=== PATIENT | male | born 1950 | race Caucasian/White ===

== ENCOUNTER 2019-04-24 12:29 | Inpatient (IN) | payer OTHER ==
[2019-04-24 13:46] LABS: Albumin 3.6 g/dL (3.2-5.2); Albumin/Globulin Ratio 1.1 (1-3); BUN/Creatinine Ratio 24.5 (8-20); Calcium 9.6 mg/dL (8.6-10.3); EGFR African American 23.2 (>60); EGFR Non-African American 19.2 (>60); Globulin 3.4 g/dL (2-4); Potassium 3.6 mmol/L (3.5-5.0); Total Bilirubin 0.7 mg/dL (0.2-1.0)
[2019-04-24 14:07] LABS: ABS Eosinophils 0.1 10^3/ul (0-0.6); ABS Monocytes 0.7 10^3/ul (0-0.8); ABS Neutrophils 5.3 10^3/ul (1.5-7.7); Eosinophil % 1.8 %; Hematocrit 34 % (42-52); Hemoglobin 11.1 g/dL (14.0-18.0); Lymphocyte % 13.5 %; Mean Corpuscular HGB Conc 32 g/dL (31-36); Mean Corpuscular Hemoglobin 34 pg (27-31); Mean Corpuscular Volume 106 fL (80-94); Mean Platelet Volume 8.2 fL (7.4-10.4); Nucleated Red Blood Cells % 0.1; Platelet Count 144 10^3/uL (150-450); Red Blood Count 3.21 10^6 /uL (4.18-5.48); Red Cell Distribution Width 16 % (10-15); White Blood Count 7.2 10^3/uL (3.5-10.8)
[2019-04-24 14:24] LABS: C Reactive Protein 102.32 mg/L (<8.01)
[2019-04-24] MEDS ORDERED: NS 0.9% 1000 ML** 1,000 ML IV ONE (15:54)
[2019-04-24] MEDS ORDERED: Azithromycin 500 mg/250 ml NS 500 MG/250 ML BAG IVPB ONE (15:55)
[2019-04-24] MEDS ORDERED: cefTRIAXone(*) 1 GM in NS 0.9% 50 ML* 50 ML IVPB ONE (15:55)
--- NOTE | 2019-04-24 15:57 | ED ---
Respiratory - HPI Summary HPI Summary: The patient is a 68 y/o M presenting to [facility] with a chief complaint of respiratory symptoms for the last 4-5 days. He reports that he has been experiencing a productive cough, shortness of breath, weakness, and decreased appetite. He states he has been drinking fluids. He denies any chest pain or edema. He is not in any pain. There are no aggravating or alleviating factors. He states that he formerly smoked but only stopped two days ago. PMHx: atrial fibrillation, CHF, HLD, HTN, two cardiac stents, COPD, acute renal failure, gout. Former smoker, no EtOH, no substance use. Medications reviewed. Allergies noted. - History of Current Complaint Chief Complaint: EDUpperRespComplaint Stated Complaint: SOB/SICK PER PT Time Seen by Provider: 04/24/19 15:50 Hx Obtained From: Patient Onset/Duration: Gradual Onset, Lasting Days - 4-5, Still Present Initial Severity: Mild Current Severity: Moderate Pain Intensity: 0 Character: Cough (Productive) Sputum Amount: Small Aggravating Factor(s): Nothing Alleviating Factor(s): Nothing Associated Signs and Symptoms: SOB - Allergy/Home Medications Allergies/Adverse Reactions: Allergies Allergy/AdvReac Type Severity Reaction Status Date / Time No Known Allergies Allergy Verified 04/24/19 12:35 PMH/Surg Hx/FS Hx/Imm Hx Endocrine/Hematology History: Denies: Hx Diabetes Cardiovascular History: Reports: Hx Atrial Fibrillation, Hx Congestive Heart Failure, Hx Hypercholesterolemia, Hx Hypertension Respiratory History: Reports: Hx Chronic Obstructive Pulmonary Disease (COPD), Other Respiratory Problems/Disorders - copd History: Reports: Hx Acute Renal Failure, Hx Dialysis, Hx Renal Disease - R KIDNEY ONLY, Other Problems/Disorders - no Left kidney Musculoskeletal History: Reports: Hx Gout Sensory History: Reports: Hx Contacts or Glasses Opthamlomology History: Reports: Hx Contacts or Glasses - Surgical History Surgical History: Yes Surgery Procedure, Year, and Place: 2 cardiac stents Infectious Disease History: No Infectious Disease History: Reports: Hx Shingles - IMMUNIZATION 2 MONTHS AGO Denies: Traveled Outside the [place] in Last 30 Days - Family History Known Family History: Positive: Cardiac Disease, Hypertension - Social History Alcohol Use: None Hx Substance Use: No Substance Use Type: Reports: None Hx Tobacco Use: Yes Smoking Status (MU): Former Smoker - states last used two days ago Review of Systems Negative: Fever Negative: Chest Pain Positive: Shortness Of Breath, Cough - productive Positive: Other - decreased appetite Negative: Edema Positive: Weakness All Other Systems Reviewed And Are Negative: Yes Physical Exam - Summary Physical Exam Summary: VITAL SIGNS: Reviewed. GENERAL: Patient is a well-developed and nourished male who is lying comfortable in the stretcher. Patient is not in any acute respiratory distress. Appears older than his age. HEAD AND FACE: No signs of trauma. No ecchymosis, hematomas or skull depressions. No sinus tenderness. EYES: PERRLA, EOMI x 2, No injected conjunctiva, no nystagmus. EARS: Hearing grossly intact. Ear canals and tympanic membranes are within normal limits. MOUTH: Dry oral mucosa. Oropharynx otherwise within normal limits. NECK: Supple, trachea is midline, no adenopathy, no JVD, no carotid bruit, no c- spine tenderness, neck with full ROM. CHEST: Symmetric, no tenderness at palpation. LUNGS: Crackles. No wheezing. CVS: Regular rate and rhythm, S1 and S2 present, no murmurs or gallops appreciated. ABDOMEN: Soft, non-tender. No signs of distention. No rebound, no guarding, and no masses palpated. Bowel sounds are normal. EXTREMITIES: FROM in all major joints, no edema, no cyanosis or clubbing. NEURO: Alert and oriented x 3. No acute neurological deficits. Speech is normal and follows commands. SKIN: Increased turgor of the skin, dry. Warm. Triage Information Reviewed: Yes Vital Signs On Initial Exam: Initial Vitals Temp Pulse Resp BP Pulse Ox 97.9 F 62 16 115/85 96 04/24/19 12:31 04/24/19 12:31 04/24/19 12:31 04/24/19 12:31 04/24/19 12:31 Vital Signs Reviewed: Yes Procedures - Sedation Patient Received Moderate/Deep Sedation with Procedure: No Diagnostics - Vital Signs Vital Signs Temp Pulse Resp BP Pulse Ox 04/24/19 14:40 97.8 F 60 18 102/50 96 04/24/19 12:31 97.9 F 62 16 115/85 96 - Laboratory Lab Results: Lab Results 04/24/19 04/24/19 Range/Units 13:07 13:07 WBC 7.2 (3.5-10.8) 10^3/uL RBC 3.21 L (4.18-5.48) 10^6 /uL Hgb 11.1 L (14.0-18.0) g/dL Hct 34 L (42-52) % MCV 106 H (80-94) fL MCH 34 H (27-31) pg MCHC 32 (31-36) g/dL RDW 16 H (10-15) % Plt Count 144 L (150-450) 10^3/uL MPV 8.2 (7.4-10.4) fL Neut % (Auto) 74.1 % Lymph % (Auto) 13.5 % [place] % (Auto) 10.3 % Eos % (Auto) 1.8 % Baso % (Auto) 0.3 % Absolute Neuts (auto) 5.3 (1.5-7.7) 10^3/ul Absolute Lymphs (auto) 1.0 (1.0-4.8) 10^3/ul Absolute Monos (auto) 0.7 (0-0.8) 10^3/ul Absolute Eos (auto) 0.1 (0-0.6) 10^3/ul Absolute Basos (auto) 0.0 (0-0.2) 10^3/ul Absolute Nucleated RBC 0.0 10^3/ul Nucleated RBC % 0.1 Sodium 140 (135-145) mmol/L Potassium 3.6 (3.5-5.0) mmol/L Chloride 100 L (101-111) mmol/L Carbon Dioxide 31 (22-32) mmol/L Anion Gap 9 (2-11) mmol/L BUN 79 H (6-24) mg/dL Creatinine 3.23 H (0.67-1.17) mg/dL Est GFR ( Amer) 23.2 (>60) Est GFR (Non-Af Amer) 19.2 (>60) BUN/Creatinine Ratio 24.5 H (8-20) Glucose 117 H (70-100) mg/dL Calcium 9.6 (8.6-10.3) mg/dL Total Bilirubin 0.70 (0.2-1.0) mg/dL AST 16 (13-39) U/L ALT 11 (7-52) U/L Alkaline Phosphatase 198 H (34-104) U/L C-Reactive Protein 102.32 H (<8.01) mg/L Total Protein 7.0 (6.4-8.9) g/dL Albumin 3.6 (3.2-5.2) g/dL Globulin 3.4 (2-4) g/dL Albumin/Globulin Ratio 1.1 (1-3) Result Diagrams: 04/26/19 05:31 04/26/19 05:31 Lab Statement: Any lab studies that have been ordered have been reviewed, and results considered in the medical decision making process. - Radiology Chest X-Ray Radiology Interpretation Completed By: Radiologist Summary of Radiographic Findings: Impression: 1. Interval development of left lower lung consolidation. Recommend follow-up until resolution to exclude underlying pulmonary parenchymal pathology. 2. COPD. ED physician has reviewed this report. Disposition - Course Assessment/Plan: The patient is a 68 y/o M presenting to [facility] with a chief complaint of respiratory symptoms for the last 4-5 days. He reports that he has been experiencing a productive cough, shortness of breath, weakness, and decreased appetite. He states he has been drinking fluids. He denies any chest pain or edema. He is not in any pain. There are no aggravating or alleviating factors. He states that he formerly smoked but only stopped two days ago. PMHx: atrial fibrillation, CHF, HLD, HTN, two cardiac stents, COPD, acute renal failure, gout. Former smoker, no EtOH, no substance use. Medications reviewed. Allergies noted. In the ED course, the patient was administered Azithromycin. Blood work without an acute abnormalities except for slight anemia, platelet count of 144, INR of 5.10, chloride of 100, BUN of 79, creatinine of 3.23, glucose of 117, alkaline phosphatase of 198, and CRP of 102.32. Influenza A and B negative. Chest X-ray Impression: 1. Interval development of left lower lung consolidation. Recommend follow-up until resolution to exclude underlying pulmonary parenchymal pathology. 2. COPD. I discussed the patients case with Dr. Escobedo from the hospitalist services, and he accepts the patient for admission. Patient understands and agrees with this plan. - Diagnoses Provider Diagnoses: Pneumonia - Physician Notifications Discussed Care Of Patient With: Jt Escobedo - hospitalist Time Discussed With Above Provider: 15:58 Instructed by Provider To: Other - I discussed the patient's case with Dr. Escobedo who acceptes the patient for admission. Discharge ED - Sign-Out/Discharge Documenting (check all that apply): Patient Departure - Patient is accepted for admission by Dr. Escobedo. - Discharge Plan Condition: Improved Disposition: ADMITTED TO [facility] - Billing Disposition and Condition Condition: IMPROVED Disposition: Admitted to [facility] - Attestation Statements Document Initiated by Melissa: Yes Documenting Scribe: Carol Dill Provider For Whom Melissa is Documenting (Include Credential): Dr. Mike Pascual MD Scribe Attestation: Craol Collazo scribed for Dr. Mike Pascual MD on 05/01/19 at 0751. Scribe Documentation Reviewed: Yes Provider Attestation: The documentation as recorded by the Carol morales accurately reflects the service I personally performed and the decisions made by me, Dr. Mike Pascual MD Status of Scribe Document: Viewed
[2019-04-24] MEDS ORDERED: Albuterol/Ipratropium NEB.SOL* Albuterol 2.5 MG/Ipratropium 0.5 MG 3 ML INH PRN (17:12)
[2019-04-24] MEDS ORDERED: Ondansetron INJ* 2 MG/ML VIAL IV PRN (17:16)
[2019-04-24] MEDS ORDERED: Acetaminophen TAB* 325 MG PO PRN (17:16)
[2019-04-24 18:31] LABS: INR 5.1 (0.82-1.09)
[2019-04-24 18:38] LABS: Influenza A Molecular NEGATIVE (Negative); Influenza B Molecular NEGATIVE (Negative)
--- NOTE | 2019-04-24 20:51 | HP ---
C: Dr. Carlson * ADMISSION HISTORY AND PHYSICAL: DATE OF ADMISSION: 04/24/19 PRIMARY CARE PROVIDER: Dr. Carlson at [facility] HEALTHCARE PROXY: His . CODE STATUS: Full. SOURCE OF INFORMATION: History obtained from interview with the patient and his . RELIABILITY: [id number]. CHIEF COMPLAINT: Cough and weakness. HISTORY OF PRESENT ILLNESS: This is a 68-year-old man with past medical history of CAD, paroxysmal atrial fibrillation, on Coumadin as well as COPD with long history of smoking, who approximately 1 week prior to presentation woke up and started feeling shortness of breath that was worse when lying flat, was not associated with lower extremity edema, but was associated with cough and dry throat as well as a thick phlegm that was described as off white, change from his baseline, but no fevers, chills or sweats. As a baseline, he was able to walk approximately half a mile, but now decreased over the last week , being short of breath walking to the bathroom. Described the change management specialist the last week as his cough being better and worse, but was associated with decreased p.o. intake as well as increased fatigue and sleepiness, sleeping more in his recliner. Today, he got a call from the [facility], who monitored his weight remotely, indicated that he had lost 4 pounds in the last 2 days. He was advised to contact his PCP and when he did and in discussion with him advised him to proceed to the emergency room, where he was found with new acute kidney injury as well as suspicion for pneumonia. The patient was seen by this author. The patient had cough as well as shortness of breath. No chest pain, nausea, vomiting, lightheadedness or loss of consciousness. The patient denies any changes in home medications or sick contacts. He remained home for the holidays. PAST MEDICAL HISTORY: Reviewed from the chart. The patient is a poor historian. Records were requested from his PCP. CAD with multiple PCIs; gout; paroxysmal atrial fibrillation, on Coumadin; left nephrectomy; cholecystectomy; FRANCIS, on CPAP; lung cancer, status post removal. No chemotherapy. Then, second lung cancer recently, status post RT, last therapy in March; COPD; heart failure, unknown type. MEDICATIONS: The patient does not know his home medications. All the following are unconfirmed. He receives medications through the [place], not able to call or confirm at this time. I have requested medication list from PCP. 1. Benadryl 50 mg at bedtime. 2. Coumadin 2 mg and Coumadin 1 mg, unclear of alternating days with 3 mg daily. 3. Simvastatin 40 mg at bedtime. 4. Potassium chloride 20 mEq 3 times daily. 5. Nitroglycerin sublingual. 6. Metolazone 5 mg daily. 7. Lisinopril 5 mg daily. 8. [place] 5/325 of 2 tabs 4 times daily as needed for pain. 9. Lasix 40 mg twice daily. 10. Nasalide 2 sprays both nares twice daily. 11. Ferrous sulfate 325 mg twice daily. 12. Cholecalciferol 4000 units daily. 13. Carvedilol 25 mg twice daily. 14. Symbicort 100/4.5 two puffs twice daily. 15. Aspirin 81 mg daily. 16. Allopurinol 200 mg daily. 17. Albuterol inhaler 2 puffs 4 times a day as needed. ALLERGIES: No known drug allergies. FAMILY HISTORY: Father had OR at age 55. Mother with lung cancer. SOCIAL HISTORY: One pack per day of tobacco for last 50 years, still active. No alcohol. Retired. REVIEW OF SYSTEMS: As per HPI, otherwise all other systems negative. PHYSICAL EXAMINATION GENERAL: Elderly man, looks older than his stated age, sitting up in bed, coughing, in no apparent distress, talking full sentences. VITAL SIGNS: When seen by this author 142/59, heart rate is 70, respiratory rate is 20, T-max in the emergency room is 97.9. HEENT: Oropharynx has slight erythema. Posterior pharynx has moist mucous membranes. Sclerae anicteric. NECK: He has non-elevated JVD, difficult to appreciate because of his garcía. No cervical or supraclavicular lymphadenopathy. LUNGS: His lungs have diffuse rhonchi bilaterally from bases approximately one half up bilaterally. HEART: He has irregularly irregular heart rate, difficult to appreciate murmurs. ABDOMEN: Soft, nontender, nondistended. EXTREMITIES: Warm and well perfused with 1+ lower extremity edema bilaterally. NEUROLOGIC: He is alert and oriented x3. His cranial nerves II through XII are intact. DIAGNOSTIC STUDIES/LAB DATA: Labs reviewed: Notable for white blood cell count of 7.2, hemoglobin 11.1, platelets 144. BUN of 79, creatinine 3.23. CRP is 102. Data reviewed: Chest x-ray, impression: Interval development of left lower lung consolidation as well as COPD. ASSESSMENT AND PLAN: This is a 68-year-old man with past medical history as outlined above including atrial fibrillation, coronary artery disease, chronic obstructive pulmonary disease, obstructive sleep apnea, presenting to the hospital with increased cough and weakness, found with acute kidney injury. 1. Pneumonia. Suspect based on cough, deconditioning, and chest x-ray findings. Received ceftriaxone, azithromycin in the emergency room. We will continue ceftriaxone and doxycycline, given his Coumadin to decrease the interaction between azithromycin and Coumadin. Check Streptococcus pneumoniae, Legionella urine antigen. Check influenza. 2. Atrial fibrillation. Continue Coumadin. His medication reconciliation does need to be completed as indicated above. PCP records were checked, were requested. Dosing per pharmacy. INR check tomorrow. 3. Obstructive sleep apnea. Continue CPAP. 4. Lung cancer. Receiving Radiation Therapy, last therapy on 04/17/19. No chemotherapy. 5. Chronic obstructive pulmonary disease. Continue nebulizers as well as inhaled steroids. Holding additional p.o. or IV steroids at this time. 6. Acute kidney injury. Suspect prerenal in the setting of Lasix as well as decreased appetite in the setting of aforementioned infection/pneumonia. Receive 1 L of normal saline in the emergency room. Hold additional check BMP tomorrow. 7. Congestive heart failure, unknown type. Holding Lasix in the setting of acute kidney injury. 8. Hypertension. Holding lisinopril. 9. DVT prophylaxis, on Coumadin. [id number]/[facility] #: [id number] [facility]
[2019-04-24] MEDS: Atorvastatin* 20 MG TAB PO SCH (20:55)
[2019-04-24] MEDS: Carvedilol TAB* 25 MG PO SCH (20:55)
[2019-04-24] MEDS: DOXYcycline CAP(*) 100 MG PO SCH (20:55)
[2019-04-24] MEDS: Mometasone/Formoter 200/5 MDI INH SCH (22:39)
[2019-04-25 06:38] LABS: ABS Basophils 0.1 10^3/ul (0-0.2); ABS Eosinophils 0.1 10^3/ul (0-0.6); ABS Monocytes 0.6 10^3/ul (0-0.8); ABS Neutrophils 4.4 10^3/ul (1.5-7.7); Eosinophil % 1.7 %; Hematocrit 32 % (42-52); Hemoglobin 10.6 g/dL (14.0-18.0); Lymphocyte % 16.2 %; Mean Corpuscular HGB Conc 34 g/dL (31-36); Mean Corpuscular Hemoglobin 35 pg (27-31); Mean Corpuscular Volume 105 fL (80-94); Mean Platelet Volume 8.3 fL (7.4-10.4); Nucleated Red Blood Cells % 0.2; Platelet Count 141 10^3/uL (150-450); Red Blood Count 3.01 10^6 /uL (4.18-5.48); Red Cell Distribution Width 16 % (10-15); White Blood Count 6.2 10^3/uL (3.5-10.8)
[2019-04-25 06:46] LABS: INR 4.39 (0.82-1.09)
[2019-04-25 07:05] LABS: BUN/Creatinine Ratio 24.1 (8-20); Calcium 9.1 mg/dL (8.6-10.3); EGFR African American 23.2 (>60); EGFR Non-African American 19.1 (>60)
[2019-04-25] MEDS: Allopurinol TAB* 100 MG PO SCH (08:57)
[2019-04-25] MEDS: Aspirin EC TAB* 81 MG TAB.EC PO SCH (08:57)
[2019-04-25] MEDS: Carvedilol TAB* 25 MG PO SCH ×2 (08:57→21:05)
[2019-04-25] MEDS: DOXYcycline CAP(*) 100 MG PO SCH ×2 (08:58→21:05)
[2019-04-25] MEDS ORDERED: Lisinopril TAB* 10 MG PO SCH (09:00)
[2019-04-25] MEDS ORDERED: Furosemide TAB* 40 MG PO SCH (09:00)
[2019-04-25] MEDS: Mometasone/Formoter 200/5 MDI INH SCH ×2 (09:37→20:21)
[2019-04-25 11:05] LABS: Magnesium 1.6 mg/dL (1.9-2.7)
[2019-04-25] MEDS: Potassium Chlor TAB* 10 MEQ TAB.ER PO SCH ×2 (12:00→21:05)
[2019-04-25] MEDS ORDERED: WARFARIN - No Order Today* 1 NOTE MISC FOLLOW UP ONE (15:00)
--- NOTE | 2019-04-25 16:59 | PN ---
Subjective Date of Service: 04/25/19 Interval History: Patient continues to cough severely when he takes a deep breath. Producing copius coronel sputum. Finished radiation to RT lung 04/[address] Nicolas. Has some anterior chest pain w/ cough. Family History: Unchanged from Admission Social History: Unchanged from Admission Past Medical History: Unchanged from Admission Objective Active Medications: Acetaminophen (Tylenol Tab*) 650 mg PO Q4H PRN PRN Reason: PAIN-MILD/TEMP >/= 100.4 Hydrocodone Bitart/Acetaminophen ([place] 5-325 Tab*) 2 tab PO QID PRN PRN Reason: PAIN - MODERATE Albuterol/Ipratropium (Duoneb (Albuterol 2.5 Mg/Ipratropium 0.5 Mg)) 1 neb INH Q4H PRN PRN Reason: SOB/WHEEZING Last Admin: 04/24/19 22:55 Dose: 1 neb Allopurinol (Zyloprim Tab*) 200 mg PO DAILY [facility] Last Admin: 04/25/19 08:57 Dose: 200 mg Aspirin (Aspirin Ec Tab*) 81 mg PO DAILY [facility] Last Admin: 04/25/19 08:57 Dose: 81 mg Atorvastatin Calcium (Lipitor*) 20 mg PO BEDTIME [facility] Last Admin: 04/24/19 20:55 Dose: 20 mg Carvedilol (Coreg Tab*) 25 mg PO BID [facility] Last Admin: 04/25/19 08:57 Dose: 25 mg Doxycycline Hyclate (Vibramycin Cap(*)) 100 mg PO BID [facility] Last Admin: 04/25/19 08:58 Dose: 100 mg Ceftriaxone Sodium 1 gm/ (Sodium Chloride) 50 mls @ 100 mls/hr IVPB Q24H [facility] Mometasone Furoate/Formoterol Fumar (Dulera 200/5 Mdi*) 2 puff INH BID [facility] Last Admin: 04/25/19 09:37 Dose: 2 puff Ondansetron HCl (Zofran Inj*) 4 mg IV Q4H PRN PRN Reason: NAUSEA/VOMITING Pharmacy Profile Note (Coumadin Per Pharmacy*) 1 note FOLLOW UP .PER PHARMACY PROTOC [facility]; Protocol Potassium Chloride (Klor Con Er Tab*) 10 meq PO BID [facility] Last Admin: 04/25/19 12:00 Dose: 10 meq Selected Entries 04/25/19 07:15 Temperature 36.4 C Pulse Rate 66 Respiratory 19 Rate Blood Pressure 119/48 (mmHg) O2 Sat by Pulse 99 Oximetry Oxygen Devices in Use Now: None Appearance: elderly, no distress Ears/Nose/Mouth/Throat: NL Teeth, Lips, Gums Neck: No Thyroid Enlargement, Masses Respiratory: - - ronchi LLL, diminished throughout Cardiovascular: No Edema, - - irregular, no murmur Abdominal: NL Sounds; No Tenderness; No Distention, No Hepatosplenomegaly Lymphatic: No Cervical Adenopathy Neurological: Alert and Oriented x 3 Lines/Tubes/Other Access: Clean, Dry and Intact Peripheral IV Nutrition: Taking PO's Result Diagrams: 04/25/19 06:19 04/25/19 06:19 Additional Lab and Data: Laboratory Tests 04/24/19 04/25/19 04/25/19 17:39 06:19 06:19 INR (Anticoag Therapy) 5.10 H* 4.39 H Magnesium 1.6 L Microbiology and Other Data: Microbiology 04/25/19 04:05 Legionella Urinary Antigen - Final Urine Negative Legionella Antigen Streptococcus pneumoniae Ag Screen - Final Negative S. pneumo Antigen Assess/Plan/Problems-Billing Assessment: 68 year old man with COPD and recently treated RT sided lung cancer, here with LLL pneumonia - Patient Problems (1) Pneumonia of left lower lobe due to infectious organism Current Visit: Yes Status: Acute Priority: High Code(s): J18.9 - PNEUMONIA , UNSPECIFIED ORGANISM SNOMED Code(s): 470450852 Comment: -Does not appear to have COPD exacerbation, no steroids currently needed -Continue ceftriaxone and doxycycline -Saturating well on room air (2) COPD (chronic obstructive pulmonary disease) Current Visit: Yes Status: Acute Priority: Medium Code(s): J44.9 - CHRONIC OBSTRUCTIVE PULMONARY DISEASE, UNSPECIFIED SNOMED Code(s): 59653960 Comment: -Continue nebulizers (3) Lung cancer Current Visit: Yes Status: Acute Priority: Medium Code(s): C34.90 - MALIGNANT NEOPLASM OF UNSP PART OF UNSP BRONCHUS OR LUNG SNOMED Code(s): 500608127 Comment: -Patient is immunosuppressed by recent radiation therapy -Will need outpatient follow-up (4) Atrial fibrillation with controlled ventricular rate Current Visit: Yes Status: Acute Priority: Medium Code(s): I48.91 - UNSPECIFIED ATRIAL FIBRILLATION SNOMED Code(s): 80945045 Comment: -Rate control adequate -INR elevated, warfarin on hold, would restart when INR <3 (5) Hypokalemia Current Visit: Yes Status: Acute Priority: Medium Code(s): E87.6 - HYPOKALEMIA SNOMED Code(s): 01367442 Comment: -Repleting KCl and Mg, rechecking in AM. (6) DVT prophylaxis Current Visit: Yes Status: Acute Priority: Low Code(s): Z29.9 - ENCOUNTER FOR PROPHYLACTIC MEASURES, UNSPECIFIED SNOMED Code(s): 637605900 Comment: -on warfarin Status and Disposition: inpatient
[2019-04-25] MEDS: Magnesium Oxide TAB* 400 MG PO SCH (17:22)
[2019-04-25] MEDS: cefTRIAXone(*) 1 GM in NS 0.9% 50 ML* 50 ML IVPB SCH (17:22)
[2019-04-25] MEDS: Atorvastatin* 20 MG TAB PO SCH (21:05)
[2019-04-26] MEDS: HYDROcodone/ACETAMIN 5-325 MG* 1 TAB PO PRN ×4 (01:45→20:49)
[2019-04-26] MEDS ORDERED: Benzonatate CAP* 100 MG PO PRN (03:51)
[2019-04-26] MEDS ORDERED: Morphine INJ* 2 MG/ML 1 ML SYRINGE (TWO MG - NEW SYRINGE VERSION) IV ONE (04:00)
[2019-04-26 06:05] LABS: Mean Platelet Volume 7.6 fL (7.4-10.4); Platelet Count 137 10^3/uL (150-450)
[2019-04-26 06:13] LABS: BUN/Creatinine Ratio 27.1 (8-20); Calcium 8.9 mg/dL (8.6-10.3); EGFR African American 26.1 (>60); EGFR Non-African American 21.6 (>60); INR 2.63 (0.82-1.09); Potassium 2.9 mmol/L (3.5-5.0)
[2019-04-26] MEDS ORDERED: Potassium Chlor TAB* 20 MEQ TAB.ER PO ONE (07:08)
[2019-04-26] MEDS: Mometasone/Formoter 200/5 MDI INH SCH ×2 (07:19→20:31)
[2019-04-26] MEDS: Allopurinol TAB* 100 MG PO SCH (07:27)
[2019-04-26] MEDS: Carvedilol TAB* 25 MG PO SCH ×2 (07:28→20:49)
[2019-04-26] MEDS: Potassium Chlor TAB* 10 MEQ TAB.ER PO SCH ×2 (07:28→20:49)
[2019-04-26] MEDS: Aspirin EC TAB* 81 MG TAB.EC PO SCH (07:29)
[2019-04-26] MEDS: Magnesium Oxide TAB* 400 MG PO SCH ×2 (07:29→17:04)
[2019-04-26] MEDS: DOXYcycline CAP(*) 100 MG PO SCH ×2 (07:29→20:49)
--- NOTE | 2019-04-26 14:37 | PN ---
Subjective Date of Service: 04/26/19 Interval History: Cough with white sputum, normal amount for him. Some interscapular pain that he attributes to coughing. No bowel c/o. Appetite good. No new c/o. Family History: Unchanged from Admission Social History: Unchanged from Admission Past Medical History: Unchanged from Admission Objective Active Medications: Acetaminophen (Tylenol Tab*) 650 mg PO Q4H PRN PRN Reason: PAIN-MILD/TEMP >/= 100.4 Hydrocodone Bitart/Acetaminophen ([place] 5-325 Tab*) 2 tab PO QID PRN PRN Reason: PAIN - MODERATE Last Admin: 04/26/19 13:12 Dose: 2 tab Albuterol/Ipratropium (Duoneb (Albuterol 2.5 Mg/Ipratropium 0.5 Mg)) 1 neb INH Q4H PRN PRN Reason: SOB/WHEEZING Last Admin: 04/24/19 22:55 Dose: 1 neb Allopurinol (Zyloprim Tab*) 200 mg PO DAILY [facility] Last Admin: 04/26/19 07:27 Dose: 200 mg Aspirin (Aspirin Ec Tab*) 81 mg PO DAILY [facility] Last Admin: 04/26/19 07:29 Dose: 81 mg Atorvastatin Calcium (Lipitor*) 20 mg PO BEDTIME [facility] Last Admin: 04/25/19 21:05 Dose: 20 mg Benzonatate (Tessalon Cap*) 100 mg PO Q4H PRN PRN Reason: COUGH Last Admin: 04/26/19 04:04 Dose: 100 mg Carvedilol (Coreg Tab*) 25 mg PO BID [facility] Last Admin: 04/26/19 07:28 Dose: 25 mg Doxycycline Hyclate (Vibramycin Cap(*)) 100 mg PO BID [facility] Last Admin: 04/26/19 07:29 Dose: 100 mg Ceftriaxone Sodium 1 gm/ (Sodium Chloride) 50 mls @ 100 mls/hr IVPB Q24H [facility] Last Admin: 04/25/19 17:22 Dose: 100 mls/hr Magnesium Oxide (Magox 400 Tab*) 400 mg PO BID@0600,1800 [facility] Last Admin: 04/26/19 07:29 Dose: 400 mg Mometasone Furoate/Formoterol Fumar (Dulera 200/5 Mdi*) 2 puff INH BID [facility] Last Admin: 04/26/19 07:19 Dose: Not Given Ondansetron HCl (Zofran Inj*) 4 mg IV Q4H PRN PRN Reason: NAUSEA/VOMITING Potassium Chloride (Klor Con Er Tab*) 10 meq PO BID [facility] Last Admin: 04/26/19 07:28 Dose: 10 meq Warfarin Sodium (Coumadin Tab(*)) 2 mg PO DAILY@1700 [facility]; Protocol Vital Signs - 8 hr 04/26/19 04/26/19 04/26/19 07:00 07:15 07:38 Temperature 97.3 F Pulse Rate 73 Respiratory 18 24 18 Rate Blood Pressure 120/52 (mmHg) O2 Sat by Pulse 94 Oximetry 04/26/19 04/26/19 04/26/19 10:00 11:15 13:12 Temperature 97.6 F Pulse Rate 75 Respiratory 16 18 16 Rate Blood Pressure 124/63 (mmHg) O2 Sat by Pulse 94 Oximetry Oxygen Devices in Use Now: None Appearance: Alert, partly up in bed. In good spirits. Looks comfortable. Eyes: No Scleral Icterus Respiratory: Symmetrical Chest Expansion and Respiratory Effort, Clear to Auscultation, Clear to Percussion Cardiovascular: NL Sounds; No Murmurs; No JVD, RRR, No Edema, - Extremities: No Edema, No Clubbing, Cyanosis, - Skin: No Rash or Ulcers, No Nodules or Sclerosis, - Neurological: Alert and Oriented x 3, NL Sensation Result Diagrams: 04/26/19 05:31 04/26/19 05:31 Additional Lab and Data: Laboratory Tests 04/24/19 04/25/19 04/25/19 17:39 06:19 06:19 INR (Anticoag Therapy) 5.10 H* 4.39 H Magnesium 1.6 L Microbiology and Other Data: Microbiology 04/25/19 04:05 Legionella Urinary Antigen - Final Urine Negative Legionella Antigen Streptococcus pneumoniae Ag Screen - Final Negative S. pneumo Antigen Assess/Plan/Problems-Billing Assessment: 68 year old man with COPD and recently treated RT sided lung cancer, here with LLL pneumonia - Patient Problems (1) Pneumonia of left lower lobe due to infectious organism Current Visit: Yes Status: Acute Priority: High Code(s): J18.9 - PNEUMONIA , UNSPECIFIED ORGANISM SNOMED Code(s): 534779054 Comment: -Does not appear to have COPD exacerbation, no steroids currently needed -Continue ceftriaxone and doxycycline -Saturating well on room air consider d/c on oral AB 04/27. (2) Atrial fibrillation with controlled ventricular rate Current Visit: Yes Status: Acute Priority: Medium Code(s): I48.91 - UNSPECIFIED ATRIAL FIBRILLATION SNOMED Code(s): 76915178 Comment: -Rate control adequate on carvedilol. -warfarin 2 mg ordered for 04/26 at 5 PM. (3) Lung cancer Current Visit: Yes Status: Acute Priority: Medium Code(s): C34.90 - MALIGNANT NEOPLASM OF UNSP PART OF UNSP BRONCHUS OR LUNG SNOMED Code(s): 400899543 Comment: -Patient is immunosuppressed by recent radiation therapy -Will need outpatient follow-up (4) FRANCIS (obstructive sleep apnea) Current Visit: Yes Status: Acute Code(s): G47.33 - OBSTRUCTIVE SLEEP APNEA ( ADULT) (PEDIATRIC) SNOMED Code(s): 02259548 Comment: to bring in his CPAP 04/26. He uses O2 at home only with CPAP. Status and Disposition: inpatient
[2019-04-26] MEDS ORDERED: Warfarin TAB(*) 2 MG PO SCH (17:00)
[2019-04-26] MEDS ORDERED: Warfarin TAB(*) 2 MG PO ONE (17:00)
[2019-04-26] MEDS: cefTRIAXone(*) 1 GM in NS 0.9% 50 ML* 50 ML IVPB SCH (17:04)
[2019-04-26] MEDS: Atorvastatin* 20 MG TAB PO SCH (20:49)
[2019-04-27 05:40] LABS: INR 2.36 (0.82-1.09)
[2019-04-27] MEDS: Magnesium Oxide TAB* 400 MG PO SCH (06:33)
[2019-04-27] MEDS: Allopurinol TAB* 100 MG PO SCH (07:58)
[2019-04-27] MEDS: Aspirin EC TAB* 81 MG TAB.EC PO SCH (07:58)
[2019-04-27] MEDS: Potassium Chlor TAB* 10 MEQ TAB.ER PO SCH (07:59)
[2019-04-27] MEDS: HYDROcodone/ACETAMIN 5-325 MG* 1 TAB PO PRN (07:59)
[2019-04-27] MEDS: DOXYcycline CAP(*) 100 MG PO SCH (07:59)
[2019-04-27] MEDS: Carvedilol TAB* 25 MG PO SCH (07:59)
[2019-04-27 08:08] VITALS: BP 116/51
[2019-04-27] MEDS: Mometasone/Formoter 200/5 MDI INH SCH (08:11)
--- NOTE | 2019-04-27 10:01 | PN ---
Progress Note - Progress Note Date of Service: 04/27/19 Note: Time spent on discharge including exam of patient, discussion with patient, nurse, CM, review of EHR and preparation of discharge documents is 45 minutes.
--- NOTE | 2019-04-27 11:12 | DS ---
DISCHARGE SUMMARY: DATE OF ADMISSION: 04/24/19 DATE OF DISCHARGE: 04/27/19 HISTORY/HOSPITAL COURSE: This 68-year-old man presented with cough and weakness. The history is detailed in the admission note. He has a history of COPD. He is generally treated in the [place] system. Chest x-ray showed left lower lung consolidation. He was afebrile throughout the hospital stay. His white count was normal. He was given doxycycline and ceftriaxone. He did well in the hospital with improvement pretty much to his baseline. The patient will complete therapy with 4 more days of oral doxycycline and cefuroxime. He will follow up with the [place] system for his lung cancer, atrial fibrillation, and sleep apnea. FINAL DIAGNOSES: 1. Pneumonia of left lower lobe. 2. Atrial fibrillation. 3. Lung cancer. 4. Obstructive sleep apnea. DISCHARGE MEDICATIONS: 1. Cefuroxime 500 mg b.i.d. for 4 days. 2. Doxycycline 100 mg b.i.d. for 4 days. 3. Vitamin D 4000 units daily. 4. Warfarin 2 mg and 1 mg dose on different days of the week as prescribed. 5. Aspirin 81 mg daily. 6. Simvastatin 40 mg daily. 7. Potassium chloride 20 mEq t.i.d. 8. Metolazone 5 mg as prescribed. 9. Nitroglycerin 0.4 mg sublingual p.r.n. 10. Lisinopril 5 mg daily. 11. Hydrocodone/acetaminophen 2 tabs 4 times a day p.r.n. 12. Furosemide 40 mg b.i.d. 13. Flunisolide 2 sprays both nares b.i.d. 14. Ferrous sulfate 325 mg b.i.d. 15. Diphenhydramine 50 mg h.s. 16. Carvedilol 25 mg b.i.d. 17. Budesonide/formoterol 160/4.5 two puffs b.i.d. 18. Allopurinol 200 mg daily. 19. Albuterol inhaler 2 puffs 4 times a day p.r.n. DISPOSITION: Home. CONDITION ON DISCHARGE: Improved. [id number]/[facility] #: [id number] MTDD
== END 2019-04-27 11:05 | disposition home or self-care (01) | DRG 194 ==
LOC: ED 12:29 → MED 17:16
PROVIDERS: ADMIT Internal Medicine; ATTEND Internal Medicine
DX: J18.9 Pneumonia, unspecified organism (principal); J44.0 Chronic obstructive pulmonary disease with (acute) lower respiratory infection; N17.9 Acute kidney failure, unspecified; C34.91 Malignant neoplasm of unspecified part of right bronchus or lung; I25.10 Atherosclerotic heart disease of native coronary artery without angina pectoris; I50.9 Heart failure, unspecified; F17.210 Nicotine dependence, cigarettes, uncomplicated; I11.0 Hypertensive heart disease with heart failure; E78.5 Hyperlipidemia, unspecified; M10.9 Gout, unspecified; E78.00 Pure hypercholesterolemia, unspecified; E87.6 Hypokalemia; I48.0 Paroxysmal atrial fibrillation; G47.33 Obstructive sleep apnea (adult) (pediatric); Z79.01 Long term (current) use of anticoagulants; Z79.82 Long term (current) use of aspirin; Z79.51 Long term (current) use of inhaled steroids; Z79.899 Other long term (current) drug therapy; Z95.5 Presence of coronary angioplasty implant and graft; Z92.3 Personal history of irradiation; Z28.21 Immunization not carried out because of patient refusal
CPT/HCPCS: 36415; 71046; 80048; 80053; 83735; 85025; 85049; 85610; 86140; 87899; 94640; 94660; 99284; A9270-GY; J0456; J0696; J2270

== ENCOUNTER 2020-05-17 11:57 | Inpatient (IN) ==
[2020-05-17 12:58] LABS: Activated Partial Thrombo Time 38.1 seconds (26.0-38.0); INR 2.75 (0.82-1.09)
[2020-05-17 13:01] LABS: ALT 6 U/L (7-52); AST 10 U/L (13-39); Albumin 3.1 g/dL (3.2-5.2); Albumin/Globulin Ratio 0.9 (1-3); Alkaline Phosphatase 147 U/L (34-104); Anion Gap 6 mmol/L (2-11); BUN/Creatinine Ratio 18.1 (8-20); Blood Urea Nitrogen 49 mg/dL (6-24); CO2 Carbon Dioxide 30 mmol/L (22-32); Calcium 9.5 mg/dL (8.6-10.3); Chloride 104 mmol/L (101-111); Creatine Kinase 13 U/L (10-223); EGFR African American 28.3 (>60); EGFR Non-African American 23.4 (>60); Globulin 3.5 g/dL (2-4); Glucose 112 mg/dL (70-100); Potassium 4.9 mmol/L (3.5-5.0); Sodium 140 mmol/L (135-145); Total Protein 6.6 g/dL (6.4-8.9)
[2020-05-17 13:05] LABS: Troponin I 0.03 ng/mL (<0.03)
[2020-05-17 13:22] LABS: ABS Basophils 0.1 10^3/ul (0-0.2); ABS Lymphocytes 0.5 10^3/ul (1.0-4.8); ABS Monocytes 0.8 10^3/ul (0-0.8); ABS Neutrophils 8.2 10^3/ul (1.5-7.7); ABS Nucleated RBC 0.1 10^3/ul; Eosinophil % 0.1 %; Hematocrit 32 % (42-52); Hemoglobin 10.2 g/dL (14.0-18.0); Lymphocyte % 5.7 %; Mean Corpuscular HGB Conc 32 g/dL (31-36); Mean Corpuscular Hemoglobin 36 pg (27-31); Mean Corpuscular Volume 111 fL (80-94); Mean Platelet Volume 8.7 fL (7.4-10.4); Nucleated Red Blood Cells % 1.2; Platelet Count 80 10^3/uL (150-450); Red Blood Count 2.85 10^6 /uL (4.18-5.48); Red Cell Distribution Width 19 % (10-15); White Blood Count 9.6 10^3/uL (3.5-10.8)
[2020-05-17] MEDS ORDERED: Furosemide 40 mg/4 ml IV VIAL IV SLOW PU ONE (14:11)
[2020-05-17 14:46] LABS: Urine Appearance Cloudy; Urine Bilirubin Negative (Negative); Urine Blood 1+ (Negative); Urine Color Yellow; Urine Glucose Negative (Negative); Urine Ketones Negative (Negative); Urine Nitrite Positive (Negative); Urine Protein 2+(100 mg/dL) (Negative); Urine Urobilinogen Negative (Negative)
[2020-05-17 14:49] LABS: Urine Bacteria Absent (Absent); Urine Red Blood Cell 2+(6-10/hpf) (Absent); Urine Squamous Epithelial Cell Present (Absent); Urine White Blood Cell 3+(>20/hpf) (Absent)
[2020-05-17] MEDS ORDERED: Albuterol HFA INHALER 8 gm MDI INH PRN (15:47)
[2020-05-17] MEDS ORDERED: cefTRIAXone 1 gm/50 mL NS BAG 1 GM/50 ML BAG IV ONE (16:09)
[2020-05-17] MEDS: Furosemide 40 mg/4 ml IV VIAL IV SLOW PU SCH (20:21)
[2020-05-18] MEDS: cefTRIAXone 1 gm/50 mL NS BAG 1 GM/50 ML BAG IVPB SCH ×2 (00:22→20:04)
[2020-05-18 06:57] LABS: ABS Lymphocytes 0.5 10^3/ul (1.0-4.8); ABS Monocytes 0.9 10^3/ul (0-0.8); ABS Nucleated RBC 0.1 10^3/ul; Hematocrit 28 % (42-52); Lymphocyte % 4.5 %; Mean Corpuscular HGB Conc 32 g/dL (31-36); Mean Corpuscular Hemoglobin 35 pg (27-31); Mean Corpuscular Volume 110 fL (80-94); Mean Platelet Volume 8.4 fL (7.4-10.4); Nucleated Red Blood Cells % 0.9; Platelet Count 69 10^3/uL (150-450); Red Blood Count 2.56 10^6 /uL (4.18-5.48); Red Cell Distribution Width 18 % (10-15); White Blood Count 11.5 10^3/uL (3.5-10.8)
[2020-05-18 06:59] LABS: Calcium 8.9 mg/dL (8.6-10.3); EGFR African American 30.1 (>60); EGFR Non-African American 24.9 (>60); Potassium 3.7 mmol/L (3.5-5.0)
[2020-05-18] MEDS: Aspirin EC 81 mg TAB.EC (enteric coated) PO SCH (08:43)
[2020-05-18] MEDS: Furosemide 40 mg/4 ml IV VIAL IV SLOW PU SCH ×2 (08:43→17:11)
[2020-05-18] MEDS ORDERED: Gadobenate (CONTRAST) 529 MG/ML 10 ML SDV IV ONE (13:48)
[2020-05-18] MEDS ORDERED: Gadobenate (CONTRAST) 529 MG/ML 10 ML SDV IV SCH (14:00)
[2020-05-18] MEDS ORDERED: Dexamethasone IV 10 MG in NS 0.9% 50 ML 50 ML IVPB ONE (17:43)
[2020-05-18] MEDS ORDERED: Dexamethasone IV 4 MG/ML VIAL 1 ml VIAL IV SLOW PU ONE (18:30)
[2020-05-18] MEDS: Famotidine IV 10 MG/ML 2 ml VIAL (20 mg) IV SLOW PU SCH (20:03)
[2020-05-19] MEDS: Dexamethasone IV 4 MG/ML VIAL 1 ml VIAL IV SLOW PU SCH ×3 (00:27→12:13)
[2020-05-19] MEDS: Bumetanide IV 0.25 MG/ML 4 ml VIAL (1 mg) SLOW PUSH SCH ×2 (06:36→14:31)
[2020-05-19 07:04] LABS: ABS Lymphocytes 0.3 10^3/ul (1.0-4.8); ABS Monocytes 0.1 10^3/ul (0-0.8); ABS Neutrophils 10.1 10^3/ul (1.5-7.7); ABS Nucleated RBC 0.2 10^3/ul; Hematocrit 27 % (42-52); Mean Corpuscular HGB Conc 33 g/dL (31-36); Mean Corpuscular Hemoglobin 36 pg (27-31); Mean Corpuscular Volume 109 fL (80-94); Mean Platelet Volume 8.5 fL (7.4-10.4); Nucleated Red Blood Cells % 1.6; Platelet Count 77 10^3/uL (150-450); Red Blood Count 2.51 10^6 /uL (4.18-5.48); Red Cell Distribution Width 18 % (10-15); White Blood Count 10.6 10^3/uL (3.5-10.8)
[2020-05-19] MEDS: Aspirin EC 81 mg TAB.EC (enteric coated) PO SCH (08:10)
[2020-05-19] MEDS: Famotidine IV 10 MG/ML 2 ml VIAL (20 mg) IV SLOW PU SCH (08:14)
[2020-05-19 08:45] LABS: Potassium 3.8 mmol/L (3.5-5.0)
[2020-05-19 08:50] LABS: BUN/Creatinine Ratio 22.7 (8-20); C Reactive Protein 119.5 mg/L (<8.01); EGFR African American 28.5 (>60); EGFR Non-African American 23.6 (>60)
[2020-05-19 12:23] VITALS: BP 132/56
== END 2020-05-19 15:40 | disposition home or self-care (01) | DRG 291 ==
LOC: ED 11:57 → MED 11:57
PROVIDERS: ADMIT Internal Medicine; ATTEND Internal Medicine